=== PATIENT | female | born 1980 | race African-American/Black ===

== ENCOUNTER 2016-03-14 07:56 | Day surgery (SDC) | payer OTHER ==
[~2016-03-14] VITALS: Ht 162.6 cm; Wt 54.0 kg
[~2016-03-14 07:56] MED LIST: 0.9% Sodium Chloride 1,000 ML IV PRN; OMEP20TA24 PO; Sodium Chloride LOK Flush 10 mL Syringe IV PRN; fentaNYL-PF 50 mCg/mL 2 mL Inj IVPUSH PRN
[2016-03-14 08:18] VITALS: BP 118/71; PULSE 97; RESP 16; O2SAT 100
--- NOTE | 2016-03-14 09:29 | PCM.ENDCOL ---
Colonoscopy Date of Service: Mar 14, 2016 Physician Derek Camacho MD Indication for Procedure Diarrhea and abdominal pain Post Procedure Dx & Findings: Polyp and hemorrhoids Procedure Colonoscopy Prep adequate Withdrawal time 14 minutes. PROCEDURE IN DETAIL: After unremarkable rectal examination Olympus video colonoscope was inserted patient's anal canal and advanced the cecum. Scope further events to terminal ileum. We advanced about 8 cm. The landmarks are identified including the ileocecal valve and appendiceal orifice. Scope was withdrawn systematically. The mucosa of the cecum, ascending, transverse, descending, sigmoid, rectal mucosa lined with whitish, pink, smooth, glistening, normal-appearing mucosa, normal fine branching, underlying vascularity, normal haustra. The patient tolerated procedure and was transported to observation area. Random biopsies are obtained from the cecum to the rectum. In the rectosigmoid junction, there was a less than 1 mm polyp which was resected completely using cold forceps. In the rectum retroflexion was done which showed moderate hemorrhoids in anal canal was inspected carefully in the way of hemorrhoids noted. Impression Normal terminal ileum Normal colon status post random biopsies as described above Polyp status post complete removal Hemorrhoids Recommendation Please take Prilosec as prescribed. Await biopsies Repeat colonoscopy 5 years. Presedation Assessment Risks and Benefits Informed consent was obtained from the patient after all risks and benefits including but not limited to drug reaction, infection, pain, bleeding, perforation, as well as alternatives were discussed. Patient monitoring Continuous pulse oximetry, cardiac monitoring, blood pressure monitoring, IV access, and oxygen at 2L per nasal cannula. Periprocedural Fentanyl: Fentanyl 175mcg Incrementally Midazolam: Midazolam 8mg Incrementally Complications There were no periprocedural complications identified. Post Procedure Plan Post Procedure Recommendations 1. Restrict activities today. 2. Resume normal activities in the morning. 3. Resume medications. 4. Patient informed of normal post procedure side effects as bloating, drowsiness, blood streaking in the stool. 5. average risk CRCS. If colon polyps come back as: -Hyperplastic- can repeat colonoscopy in 10 years -Tubular adenoma- repeat colonoscopy in 5 years -Tubulovillous/villous adenoma- repeat colonoscopy in 3 years -If any dysplasia- return to clinic as soon as possible 6. Please don't hesitate to call me with any questions. Derek aCmacho MD Mar 14, 2016 09:29
[2016-03-14 09:30] VITALS: BP 112/60; PULSE 79; RESP 16; O2SAT 100
[2016-03-14 09:40] VITALS: BP 101/60; PULSE 77; RESP 16; O2SAT 98
[2016-03-14 09:50] VITALS: BP 115/72; PULSE 89; RESP 14; O2SAT 100
--- NOTE | 2016-03-15 12:03 | PATH ---
SURGICAL PATHOLOGY Attending Physician:Derek Camacho M.D. CASE STATUS: Signed Out PATIENT NAME: ELIJAH JERONIMO PID: [id number] : 1980 DATE COLLECTED:03/14/2016 17:40 SPECIMEN: 1: Colon, Biopsy 2: Colon, Biopsy CLINICAL HISTORY: 1: RANDOM COLON BIOPSIES 2: RECTOSIGMOID POLYP FINAL DIAGNOSIS: 1. Random Colon Biopsies: Fragments of normal appearing colon mucosa. Negative for significant architectural distortion. Negative for significant inflammation, dysplasia and malignancy. 2. Rectosigmoid Colon Polyp: Hyperplastic polyp. ICD10 K63.5 GROSS DESCRIPTION: The specimen is received in two formalin filled containers labeled with the patient's name. 1. Specimen a sublabeled "random colon" and consists of multiple portions of tissue which aggregate to 0.5 x 0.5 x 0.2 CM. The specimen is entirely submitted in cassette 1A. 2. The specimen is sublabeled "rectosigmoid polyps" and consists of a 0.4 x 0.3 x 0.2 CM portion of tissue which is entirely submitted in cassette 2A. 03/14/2016 [facility] ICD-9 CODES: CPT CODES: 1: 42792 2: 11954 Electronically Signed Out Misha Hernandez MD [facility] Pathology [facility] [address], [place] [address] Technical component performed at [facility], [facility] [address], [place], [address]
== END 2016-03-14 23:59 | disposition home or self-care (01) ==
LOC: END 07:56
PROVIDERS: ATTEND Internal Medicine
DX: K62.1 Rectal polyp (principal); K64.9 Unspecified hemorrhoids; R19.7 Diarrhea, unspecified; R10.9 Unspecified abdominal pain
CPT/HCPCS: 45380; 88305; 99153; G0500; J2250; J7030